=== PATIENT | female | born 1925 ===

== ENCOUNTER → 2016-09-08 | Outpatient (CLI) | payer MEDICARE ==
--- NOTE | 2016-09-08 17:37 | CT ---
EXAMINATION TYPE: CT chest wo con DATE OF EXAM: 09/08/2016 1:13 PM COMPARISON: NONE HISTORY: Shortness of breath and cough CT DLP: 464 mGycm, Automated exposure control for dose reduction was used. CONTRAST: None TECHNIQUE: Axial images were obtained at 5 mm thick sections. Reconstructed images are reviewed on [employer] computer in the coronal plane. FINDINGS: Thyroid is somewhat heterogenous. There is a small right pleural effusion. There is a minimal left pleural effusion. Coronary artery ca lcifications noted. Splenic artery calcification is present. There appear to be multiple hypodensitie s within the liver. Hepatic cysts are favored within the differential. Other etiologies are not exclu ded. No suspicious lung nodules or focal infiltrates are present. No enlarged mediastinal or hilar adenopathy is evident. The ascending aorta diameter at the level o f the main pulmonary artery is 3.1 cm. The main pulmonary artery diameter at the bifurcation is 3.2 cm. Vascular calcifications within the aorta. Some tracheobronchial calcifications also noted. Limited CT sections are obtained through the upper abdomen. Abdomen is essentially unremarkable. IMPRESSIONS: 1. Small right and minimal left pleural effusions. 2. Hypodensities within the liver more likely hepatic cysts. This could be confirmed with ultrasound.
== END | disposition home or self-care (01) ==
LOC: RADCTMAIN 11:48
PROVIDERS: ATTEND Internal Medicine Critical Care Medicine
DX: J90 Pleural effusion, not elsewhere classified (principal)
CPT/HCPCS: 36415; 71250; 82565; 84520